=== PATIENT | female | born 1965 | race Caucasian/White ===

== ENCOUNTER 2017-12-06 06:29 | Day surgery (SDC) | payer BC ==
[2017-12-05 12:50] LABS: BASOPHILS # (AUTO) 0.1 K/uL (0.0-0.2); BASOPHILS % (AUTO) 1.1 % (0.0-2.0); EOSINOPHILS # (AUTO) 0.1 K/uL (0.0-0.4); EOSINOPHILS % (AUTO) 1.6 % (0.0-4.0); HEMATOCRIT 39.2 % (36-48); LYMPHOCYTES # (AUTO) 1.4 K/uL (1.0-5.5); LYMPHOCYTES % (AUTO) 26.7 % (20.5-51.5); MEAN CORPUSCULAR HEMOGLOBIN 31 pg (27-31); MEAN CORPUSCULAR HGB CONC 33 % (32-36); MEAN CORPUSCULAR VOLUME 93 fL (79.0-98.0); MONOCYTES # (AUTO) 0.5 K/uL (0.0-1.0); MONOCYTES % (AUTO) 8.7 % (1.7-9.3); NEUTROPHILS # (AUTO) 3.3 K/uL (1.8-7.7); NEUTROPHILS % (AUTO) 61.9 % (40.0-70.0); PLATELET COUNT (AUTO) 293 K/uL (130-430); RED BLOOD CELL COUNT(AUTO) 4.24 MIL/uL (4.2-6.2); RED CELL DISTRIBUTION WIDTH 11.8 % (9.0-15.0); WHITE BLOOD COUNT (AUTO) 5.4 K/uL (4.8-10.8)
[2017-12-05 12:52] LABS: BILIRUBIN,URINE NEGATIVE (NEGATIVE); BLOOD, URINE NEGATIVE (NEGATIVE); CLARITY/URINE CLEAR (CLEAR); COLOR,URINE YELLOW (YELLOW); GLUCOSE,URINE NEGATIVE (NEGATIVE); KETONES,URINE NEGATIVE (NEGATIVE); LEUKOCYTE ESTERASE ,URINE TRACE (NEGATIVE); NITRITE, URINE NEGATIVE (NEGATIVE); PH,URINE 6.5 (5.0-8.0); PROTEIN URINE NEGATIVE (NEGATIVE); UROBILINOGEN,URINE 0.2 (0.2-1.0)
[2017-12-05 12:59] LABS: BACTERIA,URINE RARE /HPF (None Seen); RBC,URINE 0-3 /HPF (0-3); WBC,URINE 0-3 /HPF (0-3)
[2017-12-05 13:04] LABS: CREATININE 0.63 mg/dL (0.55-1.30); POTASSIUM 4.4 mmol/L (3.5-5.1)
[2017-12-05 13:11] LABS: TOTAL BILIRUBIN 0.5 mg/dL (0.0-1.0)
[2017-12-05 13:17] LABS: PROTHROMBIN TIME 10.4 SECS (9.5-12.5)
[~2017-12-06] VITALS: Ht 160 cm; Wt 70.3 kg
[2017-12-06] MEDS ORDERED: ONDANSETRON HCL 4 MG/2 ML VIAL IVP PRN ×2 (09:00→10:00)
[2017-12-06] MEDS ORDERED: fentaNYL CITRATE/PF 100 MCG/2 ML AMP IVP PRN ×2 (09:00)
[2017-12-06] MEDS ORDERED: OXYCODONE/ACETAMINOPHEN 5-325 TABLET PO PRN ×2 (10:00)
[2017-12-06] MEDS ORDERED: PROMETHAZINE HCL 25 MG/ML AMP IM PRN ×2 (10:00)
[2017-12-06] MEDS ORDERED: fentaNYL CITRATE/PF 100 MCG/2 ML AMP ONE (10:09)
[2017-12-06] MEDS ORDERED: fentaNYL CITRATE/PF 100 MCG/2 ML AMP IVP ONE (10:10)
[2017-12-06] MEDS ORDERED: OXYCODONE/ACETAMINOPHEN 5-325 TABLET ONE (10:51)
[2017-12-06 10:52] VITALS: BP_SYST 112
== END 2017-12-06 12:20 | disposition home or self-care (01) ==
LOC: SDS 06:29 → SMU 06:30 → SDS 12:20
PROVIDERS: ATTEND Obstetrics & Gynecology
PROC: 0UB74ZZ Excision of Bilateral Fallopian Tubes, Percutaneous Endoscopic Approach (ICD-10-PCS; 2017-12-06)
PROC: 0UB24ZZ Excision of Bilateral Ovaries, Percutaneous Endoscopic Approach (ICD-10-PCS; principal; 2017-12-06 08:30)
DX: N73.6 Female pelvic peritoneal adhesions (postinfective) (principal); N83.299 Other ovarian cyst, unspecified side; R10.2 Pelvic and perineal pain; N95.1 Menopausal and female climacteric states
CPT/HCPCS: 58661; 36415; 80053; 81000; 84703; 85025; 85610; 85730; 86886; 86900; 86901; 88305; C1727; J3010; J7120

== ENCOUNTER 2022-01-17 10:20 | Emergency (ER) | payer BC ==
[~2022-01-17] VITALS: Ht 160 cm; Wt 72.6 kg
[2022-01-17 10:52] VITALS: BP_SYST 124
--- NOTE | 2022-01-17 10:55 | NUR ---
Patient to ER bed 2 for evaluation. Side rails up. Assumed care.
--- NOTE | 2022-01-17 10:55 | NUR ---
pt. came in with concern of fever X 5 days and feeling lethagic went to PCP and was given antibiotics but has had no improvement
--- NOTE | 2022-01-17 11:10 | NUR ---
ER at bedside examining patient.
[2022-01-17] MEDS ORDERED: NACL 0.9% 1,000 ML IV ONE (11:30)
[2022-01-17 11:33] LABS: BILIRUBIN,URINE 1+ (NEGATIVE); BLOOD, URINE 2+ (NEGATIVE); CLARITY/URINE CLEAR (CLEAR); COLOR,URINE YELLOW (YELLOW); GLUCOSE,URINE NEGATIVE (NEGATIVE); KETONES,URINE TRACE (NEGATIVE); LEUKOCYTE ESTERASE ,URINE NEGATIVE (NEGATIVE); NITRITE, URINE NEGATIVE (NEGATIVE); PROTEIN URINE 1+ (NEGATIVE)
[2022-01-17 11:54] LABS: BASOPHILS % (AUTO) 0.3 % (0.0-2.0); HEMATOCRIT 38.4 % (36-48); HEMOGLOBIN 12.8 g/dL (12.0-16.0); LYMPHOCYTES # (AUTO) 0.5 K/uL (1.0-5.5); LYMPHOCYTES % (AUTO) 7.5 % (20.5-51.5); MEAN CORPUSCULAR HEMOGLOBIN 31 pg (27-31); MEAN CORPUSCULAR HGB CONC 33 % (32-36); MEAN CORPUSCULAR VOLUME 91 fL (79.0-98.0); MONOCYTES # (AUTO) 0.3 K/uL (0.0-1.0); NEUTROPHILS # (AUTO) 5.8 K/uL (1.8-7.7); NEUTROPHILS % (AUTO) 87.2 % (40.0-70.0); PLATELET COUNT (AUTO) 207 K/uL (130-430); RED BLOOD CELL COUNT(AUTO) 4.22 MIL/uL (4.2-6.2); RED CELL DISTRIBUTION WIDTH 12.9 % (9.0-15.0); WHITE BLOOD COUNT (AUTO) 6.6 K/uL (4.8-10.8)
[2022-01-17] MEDS ORDERED: ACETAMINOPHEN 325 MG TABLET PO ONE (12:00)
[2022-01-17 12:05] LABS: CALCIUM 8.8 mg/dL (8.4-11.0); CREATININE 0.81 mg/dL (0.55-1.30); POTASSIUM 4.2 mmol/L (3.5-5.1)
[2022-01-17 12:09] LABS: ALBUMIN 3.5 g/dL (3.4-4.8); TOTAL BILIRUBIN 0.2 mg/dL (0.0-1.0)
--- NOTE | 2022-01-17 12:11 | NUR ---
temp 101.2 tylenol given
[2022-01-17 12:32] LABS: BACTERIA,URINE RARE /HPF (None Seen); MUCUS,URINE 1+ /LPF (None Seen); WBC,URINE 0-3 /HPF (0-3)
[2022-01-17] MEDS ORDERED: AZIT-93 PO (14:13)
[2022-01-17] MEDS ORDERED: KETOROLAC TROMETHAMINE 15 MG VIAL IVP ONE (14:15)
[2022-01-17 14:55] VITALS: BP_SYST 117
--- NOTE | 2022-01-17 14:55 | NUR ---
Patient given written and verbal discharge instructions and verbalizes understanding. ER discussed with patient the results and treatment provided. Patient in stable condition. ID arm band removed. IV catheter removed intact and dressing applied, no active bleeding. Rx azithromycin given. Patient educated on pain management and to follow up with PMD. Pain Scale 4. Opportunity for questions provided and answered. Medication side effect fact sheet provided.
== END 2022-01-17 14:55 | disposition home or self-care (01) ==
LOC: SED 10:20
DX: J18.9 Pneumonia, unspecified organism (principal); K76.89 Other specified diseases of liver; Z79.899 Other long term (current) drug therapy
CPT/HCPCS: 36415; 71045; 74176; 76376; 80053; 81000; 83690; 85025; 96361; 96374; 99285; J1885; J7030